=== PATIENT | male | born 1985 | race Caucasian/White ===

== ENCOUNTER 2018-06-18 16:43 | Emergency (ER) | payer MEDICAID, OTHER ==
[~2018-06-18] VITALS: Ht 180.3 cm; Wt 68.2 kg
[~2018-06-18 16:43] MED LIST: PRED5TAB PO
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
[2018-06-18] MEDS ORDERED: ondansetron 4mg rapidly disintigrating tab PO ONE (17:15)
[2018-06-18] MEDS ORDERED: loperamide 2mg capsule PO ONE (17:15)
--- NOTE | 2018-06-18 17:23 | NUR ---
TO XRAY VIA WHEELCHAIR
[2018-06-18] MEDS ORDERED: ONDA4TAB6 PO (17:43)
[2018-06-18] MEDS ORDERED: LOPE-155 PO (17:43)
[2018-06-18] MEDS ORDERED: ALBU18HF2 INH (17:43)
[2018-06-18] MEDS ORDERED: dexamethasone 0.5 mg/5ml unit-dose oral solution PO STA (17:43)
[2018-06-18] MEDS ORDERED: dexamethasone sod phosphate 10mg/ml inj PO ONE (17:50)
[2018-06-18 17:56] VITALS: BP 100/74
== END 2018-06-18 17:57 ==
LOC: EEVIPCON 16:43 → ER 16:43
DX: K52.9 Noninfective gastroenteritis and colitis, unspecified (principal); J06.9 Acute upper respiratory infection, unspecified; F15.10 Other stimulant abuse, uncomplicated; Z88.0 Allergy status to penicillin; Z88.1 Allergy status to other antibiotic agents; Z88.8 Allergy status to other drugs, medicaments and biological substances; Z79.899 Other long term (current) drug therapy; Z56.0 Unemployment, unspecified
CPT/HCPCS: 71045; 93005; 99284; J1100; J8540

== ENCOUNTER 2022-09-25 22:15 | Emergency (ER) | payer MEDICAID, OTHER ==
[~2022-09-25] VITALS: Ht 180.3 cm; Wt 77.3 kg
[~2022-09-25 22:15] MED LIST changes: +ALBU18HF2 INH; +LOPE-190 PO; +ONDA4TAB6 PO
[2022-09-25] MEDS ORDERED: acetaminophen 325mg tablet PO ONE (23:10)
[2022-09-26 00:19] VITALS: BP 127/84
== END 2022-09-26 00:21 | disposition home or self-care (01) ==
LOC: ER 22:16
DX: R68.84 Jaw pain (principal); R22.0 Localized swelling, mass and lump, head; F15.10 Other stimulant abuse, uncomplicated; Z56.0 Unemployment, unspecified; Z88.0 Allergy status to penicillin; Z88.1 Allergy status to other antibiotic agents; Z88.6 Allergy status to analgesic agent; Z79.899 Other long term (current) drug therapy; Z79.1 Long term (current) use of non-steroidal anti-inflammatories (NSAID)
CPT/HCPCS: 70110; 99283

== ENCOUNTER 2023-06-02 19:05 | Emergency (ER) | payer MEDICAID ==
[~2023-06-02] VITALS: Ht 180.3 cm; Wt 72.7 kg
[2023-06-02 19:28] VITALS: BP 139/91; PULSE 87; TEMP 98.7; O2SAT 98
[2023-06-02] MEDS ORDERED: LIDOcaine 1% 30ml preserv. free vial IJ ONE (21:35)
[2023-06-02] MEDS ORDERED: CLIN300C54 PO (22:24)
[2023-06-02] MEDS ORDERED: ACYC-129 PO (22:24)
[2023-06-02] MEDS ORDERED: HYDR-3965 PO (22:26)
[2023-06-02] MEDS ORDERED: sulfamethoxazole/trimethoprim DS (800/160mg) tablet PO ONE (22:30)
[2023-06-02] MEDS ORDERED: HYDROcodone/acetaminophen 10/325mg tab PO ONE (22:45)
[2023-06-02 22:57] VITALS: RESP 20
== END 2023-06-02 23:02 | disposition home or self-care (01) ==
LOC: ER 19:05
DX: L03.011 Cellulitis of right finger (principal)
CPT/HCPCS: 26010; 99283; A6222

== ENCOUNTER 2023-09-14 13:05 | Emergency (ER) | payer MEDICAID ==
[~2023-09-14] VITALS: Ht 177.8 cm; Wt 72.8 kg
[2023-09-14 13:22] VITALS: BP 128/72; PULSE 111; RESP 17; TEMP 98.5; O2SAT 97
[2023-09-14] MEDS: dexamethasone sod phosphate 10mg/ml inj IM STA (14:48)
[2023-09-14 15:57] LABS: BASOPHILS % (AUTO) 0.3 % (0-1); EOSINOPHILS # (AUTO) 0.1 X10'3 (0-0.9); EOSINOPHILS % (AUTO) 1.5 % (0-6); HEMATOCRIT 38.1 % (42.0-52.0); HEMOGLOBIN 12.9 g/dl (14.0-17.9); LYMPHOCYTES # (AUTO) 1.1 X10'3 (1.1-4.8); LYMPHOCYTES % (AUTO) 13.9 % (21-51); MEAN CORPUSCULAR HEMOGLOBIN 31.9 PG (27.0-31.0); MEAN CORPUSCULAR HGB CONC 33.9 g/dL (33.0-36.5); MEAN CORPUSCULAR VOLUME 94.2 FL (78-98); MEAN PLATELET VOLUME 7.6 FL (7.4-10.4); MONOCYTES # (AUTO) 1.1 X10'3 (0-0.9); MONOCYTES % (AUTO) 13.8 % (2-12); NEUTROPHILS # (AUTO) 5.6 X10'3 (1.8-7.7); NEUTROPHILS % (AUTO) 70.5 % (42-75); PLATELET COUNT 243 X10'3 (140-440); RED BLOOD COUNT 4.05 X10'6 (4.70-6.10); RED CELL DISTRIBUTION WIDTH 13.1 % (11.5-14.5); WHITE BLOOD COUNT 7.9 X10'3 (4.5-11.0)
[2023-09-14 16:19] LABS: ALANINE AMINOTRANSFERASE 92 U/L (12-78); ALBUMIN 3.5 G/DL (3.4-5.0); ALBUMIN/GLOBULIN RATIO 0.9 (1.1-1.5); ALKALINE PHOSPHATASE 79 IU/L (46-116); ANION GAP 8 (8-16); ASPARTATE AMINO TRANSFERASE 113 U/L (10-37); BILIRUBIN,TOTAL 0.8 MG/DL (0.1-1.0); BLOOD UREA NITROGEN 21 MG/DL (7-18); BUN/CREATININE RATIO 21.9 (10.0-20.0); CALCIUM 8.3 MG/DL (8.5-10.1); CHLORIDE 106 MMOL/L (99-107); CREATININE 0.96 MG/DL (0.60-1.10); GLUCOSE 86 MG/DL (70-104); POTASSIUM 3.4 MMOL/L (3.5-5.1); SODIUM 140 MMOL/L (135-145); TOTAL CARBON DIOXIDE 25.8 MMOL/L (24-32); TOTAL PROTEIN 7.3 G/DL (6.4-8.2); eCRCL 110 ML/MIN; eGFR 89 ML/MIN
[2023-09-14 16:39] LABS: PRO BRAIN NATRIURETIC PEPTIDE 101 PG/ML (0-125)
[2023-09-14 16:45] LABS: CREATINE KINASE 3000 U/L (39-308)
[2023-09-14] MEDS: normal saline 1000ML IV soln IVB ONE (16:50)
== END 2023-09-14 18:25 | disposition left against medical advice (07) ==
LOC: ER 13:06
DX: M62.82 Rhabdomyolysis (principal); F15.90 Other stimulant use, unspecified, uncomplicated; Z88.0 Allergy status to penicillin; Z88.1 Allergy status to other antibiotic agents; Z88.6 Allergy status to analgesic agent; Z79.899 Other long term (current) drug therapy
CPT/HCPCS: 36415; 80053; 82550; 83880; 85025; 96360; 96372; 99283; J1100; J7030

== ENCOUNTER 2023-09-16 21:07 | Emergency (ER) | payer MEDICAID ==
[~2023-09-16] VITALS: Ht 177.8 cm; Wt 162.0 kg
[2023-09-16 21:10] VITALS: BP 124/70; PULSE 100; RESP 20; TEMP 99; O2SAT 99
== END 2023-09-16 22:50 | disposition home or self-care (01) ==
LOC: ER 21:08
DX: S89.82XA Other specified injuries of left lower leg, initial encounter (principal); F15.90 Other stimulant use, unspecified, uncomplicated; Z56.0 Unemployment, unspecified; Z88.0 Allergy status to penicillin; Z88.1 Allergy status to other antibiotic agents; Z88.6 Allergy status to analgesic agent; Z79.899 Other long term (current) drug therapy; W01.198A Fall on same level from slipping, tripping and stumbling with subsequent striking against other object, initial encounter; Y93.I9 Activity, other involving external motion; Y92.89 Other specified places as the place of occurrence of the external cause; Y99.8 Other external cause status
CPT/HCPCS: 73590; 99284; 99285